=== PATIENT | male | born 1945 | race Caucasian/White ===

== ENCOUNTER 2016-12-26 10:11 | Emergency (ER) | payer MEDICARE, OTHER ==
[2016-12-26] MEDS ORDERED: ORPHENADRINE CITRATE 30 MG/ML VIAL IM ONE (10:44)
[2016-12-26] MEDS ORDERED: MORPHINE SULFATE 4 MG/ML SYRG SC ONE (10:44)
[2016-12-26] MEDS ORDERED: KETOROLAC TROMETHAMINE 60 MG/2 ML VIAL IM ONE ×2 (10:44→10:48)
[2016-12-26] MEDS ORDERED: MORPHINE SULFATE 4 MG/ML SYRG ONE (10:48)
[2016-12-26] MEDS ORDERED: ORPHENADRINE CITRATE 30 MG/ML VIAL ONE (10:48)
--- NOTE | 2016-12-26 11:17 | ERNOTE ---
Back Pain ER HPI Presenting Symptoms: injury/pain to back Time Seen by Provider: 12/26/16 10:38 Source: patient Exam Limitations: no limitations Immunizations: IMMUNIZATION HX Immunizations Up to Date Yes History of Influenza Vaccine No Hx Pneumococcal Vaccination Yes Allergies/Adverse Reactions: Allergies Sulfa (Sulfonamide Antibiotics) [Sulfa(Sulfonamide Antibiotics)] Allergy ( Unknown, Verified 05/21/15 19:17) Home Medications: HOME MEDICATIONS Ascorbate Calcium [Vitamin C] 500 mg PO DAILY 01/12/12 [Last Taken Unknown] Aspirin [Aspirin EC] 325 mg PO DAILY 01/12/12 [Last Taken Unknown] Atorvastatin Calcium [Lipitor] 40 mg PO HS 01/12/12 [Last Taken Unknown] Calcium Carbonate/Vitamin D3 [Calcium 600 + D3 Softgel] 1 each PO DAILY [Last Taken Unknown] Cholecalciferol (Vitamin D3) [Vitamin D3] 1,000 unit PO BID 01/12/12 [Last Taken Unknown] Dicyclomine HCl [Bentyl] 20 mg PO BID 01/12/12 [Last Taken Unknown] Fexofenadine HCl [Maxine] 180 mg PO DAILY 01/12/12 [Last Taken Unknown] Furosemide [Lasix] 20 mg PO DAILY 01/12/12 [Last Taken Unknown] Hydroxychloroquine Sulfate [Plaquenil] 200 mg PO BID 01/12/12 [Last Taken Unknown] Insulin Glargine,Hum.rec.anlog [Lantus] 40 unit SQ BID 01/12/12 [Last Taken Unknown] Irbesartan [Avapro] 150 mg PO DAILY 01/12/12 [Last Taken Unknown] Metformin HCl [Glucophage] 500 mg PO BID 01/12/12 [Last Taken Unknown] Multivitamin [Multivitamins] 1 each PO DAILY 01/12/12 [Last Taken Unknown] Acetaminophen [Tylenol Extra Strength] 500 mg PO Q6H PRN 01/14/12 [Last Taken Unknown] Docusate Sodium [Colace] 100 mg PO HS 01/14/12 [Last Taken Unknown] Insulin Lispro [Humalog] 8 unit SQ AC 01/14/12 [Last Taken Unknown] Nitroglycerin [Nitrostat] 0.4 mg SL DAILY PRN 01/14/12 [Last Taken Unknown] Linzess 12/20/13 [Last Taken Unknown] Diazepam [Valium] 5 mg PO TID PRN #20 tablet 12/26/16 [Last Taken Unknown] HYDROcodone/ACETAMINOPHEN [[place] 5-325] 1 each PO Q4H #20 tablet 12/26/16 [Last Taken Unknown] Metoprolol Succinate [Toprol Xl] 50 mg PO DAILY 12/26/16 [Last Taken Unknown] Naproxen [Naprosyn] 500 mg PO BID #60 tablet 12/26/16 [Last Taken Unknown] Omeprazole 40 mg PO DAILY 12/26/16 [Last Taken Unknown] Narrative: Patient was moving cement blocks earlier this week and strained his back, however it was getting better over the course of several days until last night. He states he got up to try to have a bowel movement and was forcing a bowel movement and is lumbar spine weren't as severe muscle spasm, primarily on the left side. Patient is having considerable difficulty bending or even getting around at this juncture. Timing: Reports: constant Quality/Severity: Reports: moderate, severe Location of pain: Reports: lower back Activities at Onset: Reports: activity Recent Injury?: Reports: possibly Possible Precipitating Factor: Reports: lifting, turning/bending Modifying Factors - (Improves): Reports: nothing Modifying Factors - (Worsens): Reports: movement to right, movement to left, movement flexion Associated Symptoms: Reports: none Review of Systems - Review of Systems Constitutional: Present: See HPI EYE: Present: no symptoms reported ENT: Present: no symptoms reported Respiratory: Present: no symptoms reported Cardiology: Present: no symptoms reported Gastrointestinal/Abdominal: Present: no symptoms reported Genitourinary: Present: no symptoms reported Musculoskeletal: Present: See HPI, back pain Skin: Present: no symptoms reported Neurological: Present: no symptoms reported Endocrine: Present: no symptoms reported Hematologic/Lymphatic: Present: no symptoms reported Psych: Present: no symptoms reported - Patient's Past Medical History Patient History - Medical: Diabetes Type 2 Insulin Dependent, GERD, Other - rheumatoid arthritis Patient History - Cardiac/Respiratory: Hypertension, Hyperlipidemia, Myocardial Infarction Patient History - Cancer: No Hx of Cancer Patient History - Surgical Procedures: Appendectomy, Cholecystectomy, Coronary Bypass Surgery Patient History - Other: None - Social History Living Situations: home Abuse History: No History of abuse Psych History: No pertinent hx Smoking Status: Former smoker Alcohol Use: rarely Drug Use: none - Immunizations Immunizations Up to Date: Yes Hx Pneumococcal Vaccination: Yes History of Influenza Vaccine: No Physical Exam - Physical Exam General Appearance: Present: wd/wn, alert, moderate distress, severe distress Head Exam: Present: normal inspection Eye Exam: Normal inspection: bilateral, PERRL: bilateral Ears, Nose, Throat: Present: normal ENT inspection, H, normal pharynx Neck: Present: normal inspection, nontender Respiratory: Present: no respiratory distress, normal breath sounds, no accessory muscle use, chest nontender, lungs clear Cardiovascular/Chest: Present: regular rate, rhythm, no murmur, normal peripheral pulses Gastrointestinal/Abdominal: Present: normal bowel sounds, nontender, nondistended, soft, no organomegaly Rectal Exam: Present: deferred Back Exam: Present: decreased range of motion, muscle spasm - on the left side Extremity Exam: Present: normal inspection, non-tender, no edema, normal range of motion Neurological Exam: Present: alert, oriented, normal mood/affect Skin Exam: Present: normal color, warm/dry Lymphatic Exam: Present: no adenopathy ED Progress - Vital Signs Patient's Vital Signs:: I have reviewed the patient's vital signs. Vital Signs: Vital Signs 12/26/16 10:28 Temperature 36.3 C L Pulse Rate 77 Respiratory 18 Rate Blood Pressure 143/73 O2 Sat by Pulse 97 Oximetry - X-Ray X-Ray #1 X-Ray: lumbosacral Interpretation: Reviewed by me - Progress/Reassessment Chief Complaint: Back Pain Progress:: Improved Plan - Plan Plan: Patient will need to be on a brief course of nonsteroidal anti-inflammatories, muscle relaxers and pain killers. He agrees to avoid any strenuous activity for the next week or so and he will follow up with his family physician in one to 2 weeks as needed. Departure Clinical Impression: Muscle spasm Lumbosacral injury Qualifiers: Encounter type: initial encounter Qualified Code(s): S39.92XA - Unspecified injury of lower back, initial encounter - Departure Disposition: Home self-care Condition: Good Instructions: Low Back Sprain With Rehab-SportsMed, Back Pain, Adult, Muscle Cramps and Spasms, [id number] Referrals: Marshall Tavarez MD [Primary Care Provider] - Prescriptions: Diazepam [Valium] 5 mg PO TID PRN #20 tablet PRN Reason: Muscle Spasm HYDROcodone/ACETAMINOPHEN [[place] 5-325] 1 each PO Q4H #20 tablet Naproxen [Naprosyn] 500 mg PO BID #60 tablet
[2016-12-26 13:39] VITALS: BP 135/67
== END 2016-12-26 11:55 | disposition home or self-care (01) ==
LOC: ER 10:11
DX: M62.830 Muscle spasm of back (principal); S39.92XA Unspecified injury of lower back, initial encounter; E11.9 Type 2 diabetes mellitus without complications; Z79.4 Long term (current) use of insulin; I25.2 Old myocardial infarction; Z87.891 Personal history of nicotine dependence; I10 Essential (primary) hypertension; E78.5 Hyperlipidemia, unspecified; X50.0XXA Overexertion from strenuous movement or load, initial encounter; Y93.89 Activity, other specified